=== PATIENT | female | born 1980 | race Two or more races ===

== ENCOUNTER 2023-12-06 17:23 | Inpatient (IN) | payer OTHER ==
[~2023-12-06] VITALS: Ht 149.9 cm; Wt 70.3 kg
[2023-12-06] MEDS ORDERED: CRYSELLE-28 TA1 EACH PO (17:54)
[2023-12-06] MEDS ORDERED: FUSION PLUS CA1 EACH PO (17:55)
[2023-12-06] MEDS ORDERED: GLUMETZA500 MG PO (17:55)
[2023-12-06] MEDS ORDERED: TRAM1TAB98 PO (17:55)
[2023-12-06] MEDS ORDERED: DDAVP0.1 MG NASAL (17:56)
[2023-12-06] MEDS ORDERED: RINGERS SOLUTION,LACTATED 1,000 ML IV SCH (18:15)
[2023-12-06] MEDS ORDERED: DESMOPRESSIN ACETATE 4 MCG/ML AMPUL IV SCH (19:12)
[2023-12-06 19:18] LABS: MEAN CELL VOLUME 70.8 fL (80.00-100.00); MEAN CORPUSCULAR HGB CONC 31.4 g/dl (32.0-36.0); PLATELET COUNT 463 K/uL (150-450); RED BLOOD COUNT 2.76 M/uL (4.00-6.00); RED CELL DISTRIBUTION WIDTH 18.8 % (11.5-14.5)
[2023-12-06 19:20] LABS: HEMATOCRIT 19.5 % (36.0-45.00); HEMOGLOBIN 6.1 g/dL (12.0-15.00); MEAN CORPUSCULAR HEMOGLOBIN 22.1 pg (27.00-32.0)
[2023-12-06 19:33] LABS: PARTIAL THROMBOPLASTIN TIME 22.7 SECONDS (22.0-34.0); PROTHROMBIN TIME 10.9 SECONDS (9.0-11.5)
[2023-12-06 19:37] LABS: ALBUMIN 3.1 gm/dL (3.4-5.0); BILIRUBIN TOTAL 0.32 mg/dL (0.3-1.2); CALCIUM 8.6 mg/dL (8.5-10.1); CREATININE SERUM 0.74 mg/dL (0.55-1.02); GFR 85.65; GLOBULINA 3.6 G/DL (2.4-3.5); POTASSIUM 3.62 mEq/L (3.5-5.1); TOTAL PROTEIN 6.7 gm/dL (6.4-8.2)
[2023-12-07 00:04] VITALS: BP 121/75
[2023-12-07 00:16] VITALS: BP 121/75; O2SAT 100
[2023-12-07] MEDS ORDERED: ACETAMINOPHEN 500 MG GEL..CAP PO ONE (06:30)
[2023-12-07 07:42] VITALS: BP 113/71
[2023-12-07 08:00] VITALS: BP 121/76
[2023-12-07] MEDS ORDERED: FUROsemide 20 MG/2 ML VIAL IV NR (08:00)
[2023-12-07] MEDS ORDERED: MetFORMIN HCL 500 MG TABLET PO SCH (09:00)
[2023-12-07] MEDS ORDERED: Cyanocobalamin/Mecobalamin 1 TAB.SL SL NR (14:06)
[2023-12-07 16:00] VITALS: BP 108/75
[2023-12-07] MEDS ORDERED: SOD FERRIC GLUC COMPLX/SUCROSE 62.5 MG in 0.9 % SODIUM CHLORIDE 50 ML IV SCH (17:00)
[2023-12-07 17:35] LABS: HEMATOCRIT 33.4 % (36.0-45.00); HEMOGLOBIN 10.9 g/dL (12.0-15.00); MEAN CELL VOLUME 79.1 fL (80.00-100.00); MEAN CORPUSCULAR HEMOGLOBIN 25.7 pg (27.00-32.0); MEAN CORPUSCULAR HGB CONC 32.5 g/dl (32.0-36.0); PLATELET COUNT 389 K/uL (150-450); RED BLOOD COUNT 4.23 M/uL (4.00-6.00); RED CELL DISTRIBUTION WIDTH 20.2 % (11.5-14.5)
[2023-12-08 01:36] VITALS: BP 113/70
[2023-12-08 06:33] LABS: CALCIUM 8.6 mg/dL (8.5-10.1); CREATININE SERUM 0.63 mg/dL (0.55-1.02); GFR 103.14; MAGNESIUM 2.2 mg/dL (1.8-2.4); POTASSIUM 3.95 mEq/L (3.5-5.1)
[2023-12-08 06:47] LABS: HEMATOCRIT 31.1 % (36.0-45.00); HEMOGLOBIN 10.4 g/dL (12.0-15.00); MEAN CELL VOLUME 77.1 fL (80.00-100.00); MEAN CORPUSCULAR HEMOGLOBIN 25.8 pg (27.00-32.0); MEAN CORPUSCULAR HGB CONC 33.5 g/dl (32.0-36.0); PLATELET COUNT 360 K/uL (150-450); RED BLOOD COUNT 4.03 M/uL (4.00-6.00); RED CELL DISTRIBUTION WIDTH 20.8 % (11.5-14.5)
[2023-12-08] MEDS ORDERED: CLINDAMYCIN PHOSPHATE 600 MG in 0.9 % SODIUM CHLORIDE 100 ML IV ONE (08:45)
[2023-12-08] MEDS ORDERED: Cyanocobalamin/Mecobalamin 1 TAB.SL SL SCH (09:00)
[2023-12-08] MEDS ORDERED: POVIDONE-IODINE 118 ML BOTT TOP ONE (09:00)
[2023-12-08] MEDS ORDERED: HEMOSTATIC MATRIX WITH THROMBIN KIT TOP ONE (09:15)
[2023-12-08] MEDS ORDERED: ONDANSETRON HCL 2 MG/ML VIAL IV PRN (10:00)
[2023-12-08] MEDS ORDERED: MORPHINE SULFATE 4 MG,MORPHINE SULFATE 2 MG IV PRN (10:00)
[2023-12-08] MEDS ORDERED: SUGAMMADEX SODIUM 200 MG/2 ML VIAL IV ONE (10:00)
[2023-12-08] MEDS ORDERED: MORPHINE SULFATE 4 MG/ML VIAL IV ONE (10:25)
[2023-12-08] MEDS ORDERED: CLINDAMYCIN PHOSPHATE 150 MG/ML (600mg) IV SCH (12:00)
[2023-12-08 12:02] VITALS: BP 123/78
[2023-12-08 13:40] LABS: HEMATOCRIT 32.5 % (36.0-45.00); HEMOGLOBIN 10.6 g/dL (12.0-15.00); MEAN CELL VOLUME 79.3 fL (80.00-100.00); MEAN CORPUSCULAR HEMOGLOBIN 25.8 pg (27.00-32.0); MEAN CORPUSCULAR HGB CONC 32.5 g/dl (32.0-36.0); PLATELET COUNT 343 K/uL (150-450); RED CELL DISTRIBUTION WIDTH 20.4 % (11.5-14.5)
[2023-12-08 15:54] VITALS: O2SAT 100
[2023-12-08 16:27] VITALS: BP 130/82
[2023-12-08 17:19] LABS: HEMATOCRIT 32.5 % (36.0-45.00); HEMOGLOBIN 10.7 g/dL (12.0-15.00); MEAN CELL VOLUME 79.2 fL (80.00-100.00); MEAN CORPUSCULAR HEMOGLOBIN 26.1 pg (27.00-32.0); PLATELET COUNT 340 K/uL (150-450); RED BLOOD COUNT 4.11 M/uL (4.00-6.00); RED CELL DISTRIBUTION WIDTH 20.9 % (11.5-14.5)
[2023-12-08] MEDS ORDERED: MEPERIDINE HCL/PF 50 MG/ML VIAL IV PRN (22:15)
[2023-12-08] MEDS ORDERED: PROMETHAZINE HCL 25 MG/ML AMPUL IV PRN (22:15)
[2023-12-09 01:51] VITALS: BP 123/75
[2023-12-09 07:09] LABS: HEMATOCRIT 32.9 % (36.0-45.00); HEMOGLOBIN 10.9 g/dL (12.0-15.00); MEAN CORPUSCULAR HEMOGLOBIN 25.8 pg (27.00-32.0); MEAN CORPUSCULAR HGB CONC 33.1 g/dl (32.0-36.0); PLATELET COUNT 352 K/uL (150-450); RED BLOOD COUNT 4.21 M/uL (4.00-6.00); RED CELL DISTRIBUTION WIDTH 21.1 % (11.5-14.5)
[2023-12-09] MEDS ORDERED: GABAPENTIN 300 MG CAPSULE PO PRN (07:15)
[2023-12-09] MEDS ORDERED: OxyCODONE HCL/APAP UD (PERCOCET) PO PRN (07:15)
[2023-12-09 08:22] VITALS: BP 127/84
[2023-12-09] MEDS ORDERED: DESMOPRESSIN ACETATE 4 MCG/ML AMPUL IV SCH (09:00)
[2023-12-09] MEDS ORDERED: INSULIN LISPRO 1,000 UNIT/10 ML UNITS SUBCUTANEO PRN (10:30)
[2023-12-09] MEDS ORDERED: DEXTROSE 50 % IN WATER 0.5 G/ML DISP.SYRIN IV PRN (10:30)
[2023-12-09] MEDS ORDERED: ACETAMINOPHEN 500 MG GEL..CAP PO PRN (11:15)
[2023-12-09 16:10] VITALS: BP 128/81
[2023-12-10 00:12] VITALS: BP 129/82
[2023-12-10 06:51] LABS: HEMOGLOBIN 11.1 g/dL (12.0-15.00); MEAN CELL VOLUME 79.6 fL (80.00-100.00); MEAN CORPUSCULAR HGB CONC 32.7 g/dl (32.0-36.0); PLATELET COUNT 354 K/uL (150-450); RED BLOOD COUNT 4.27 M/uL (4.00-6.00); RED CELL DISTRIBUTION WIDTH 21.8 % (11.5-14.5)
[2023-12-10] MEDS ORDERED: GABAPENTIN300 MG PO (07:05)
[2023-12-10] MEDS ORDERED: OXYC1TAB9 PO (07:05)
[2023-12-10] MEDS ORDERED: ZOFRAN8 MG PO (07:07)
[2023-12-10] MEDS ORDERED: LEVSIN/SL0.125 MG SL (07:07)
[2023-12-10 08:28] VITALS: BP 124/85
== END 2023-12-10 08:46 | disposition home or self-care (01) | DRG 742 ==
LOC: ER 17:25 → OB/GYN 20:43 → SEC-K 20:43 → OB/GYN 21:42
PROVIDERS: General Practice; Internal Medicine Geriatric Medicine; ADMIT Obstetrics & Gynecology Gynecology; ATTEND Obstetrics & Gynecology Gynecology
PROC: 30233N1 Transfusion of Nonautologous Red Blood Cells into Peripheral Vein, Percutaneous Approach (ICD-10-PCS; 2023-12-06)
PROC: 0UB70ZZ Excision of Bilateral Fallopian Tubes, Open Approach (ICD-10-PCS; 2023-12-08)
PROC: 0UT90ZZ Resection of Uterus, Open Approach (ICD-10-PCS; principal; 2023-12-08 10:30)
DX: N92.1 Excessive and frequent menstruation with irregular cycle (principal); D68.00 Von Willebrand disease, unspecified; N72 Inflammatory disease of cervix uteri; D50.0 Iron deficiency anemia secondary to blood loss (chronic); Z20.822 Contact with and (suspected) exposure to COVID-19

== ENCOUNTER 2023-12-11 18:41 | Inpatient (IN) | payer OTHER ==
[~2023-12-11] VITALS: Ht 121.9 cm; Wt 70.3 kg
[~2023-12-11 18:41] MED LIST: CRYSELLE-28 TA1 EACH PO; DDAVP0.1 MG NASAL; FUSION PLUS CA1 EACH PO; GABAPENTIN300 MG PO; GLUMETZA500 MG PO; LEVSIN/SL0.125 MG SL; OXYC1TAB9 PO; TRAM1TAB98 PO; ZOFRAN8 MG PO
--- NOTE | 2023-12-11 19:02 | NUR ---
SE RECIBE PACIENTE ALERTA Y ORIENTADA X3 LA CUAL REFIERE VENIR A CAUSA DE DOLOR Y MAREOS PRESENTADOS DESDE EL TUTU DE [place]. PACIENTE REFIERE QUE FUE FUE OPERADA MIERCOLES PASADO POR DR. KATHARINA LEOS DE HISTERECTOMIA. AL MOMENTO PTE REFIERE QUE LLEVA MAS DE 15 VOMITOS. SE MIDEN S/V Y SE UBICA.
[2023-12-11] MEDS ORDERED: HYOSCYAMINE SULFATE 0.125 MG TAB.SUBL SL ONE (19:30)
[2023-12-11] MEDS ORDERED: PANTOPRAZOLE SODIUM 40 MG/VIAL VIAL IV PUSH ONE (19:30)
[2023-12-11] MEDS ORDERED: 0.9 % SODIUM CHLORIDE 1,000 ML IV ONE (19:30)
[2023-12-11] MEDS ORDERED: ONDANSETRON HCL 2 MG/ML VIAL IV ONE (19:30)
--- NOTE | 2023-12-11 19:36 | NUR ---
PTE EVALUADO POR MD [facility]EN[place] MED A PTE SE EUDC A APTE SOBRE EL SMIMO Y PTE REFIER EENTGDER. SE LLEVA ACABO ORDENES BAJO MEDIDAS ACEPTICAS. PT PEND A RESUTLADOS DE LABS Y CT.
[2023-12-11 19:37] LABS: HEMATOCRIT 38.3 % (36.0-45.00); HEMOGLOBIN 12.7 g/dL (12.0-15.00); MEAN CELL VOLUME 78.9 fL (80.00-100.00); MEAN CORPUSCULAR HEMOGLOBIN 26.2 pg (27.00-32.0); MEAN CORPUSCULAR HGB CONC 33.2 g/dl (32.0-36.0); PLATELET COUNT 399 K/uL (150-450); RED BLOOD COUNT 4.86 M/uL (4.00-6.00); RED CELL DISTRIBUTION WIDTH 22.2 % (11.5-14.5)
[2023-12-11 20:17] LABS: ALBUMIN 2.9 gm/dL (3.4-5.0); BILIRUBIN TOTAL 1.4 mg/dL (0.3-1.2); CALCIUM 9.1 mg/dL (8.5-10.1); CREATININE SERUM 0.87 mg/dL (0.55-1.02); GFR 71.06; GLOBULINA 4.8 G/DL (2.4-3.5); POTASSIUM 3.31 mEq/L (3.5-5.1); TOTAL PROTEIN 7.7 gm/dL (6.4-8.2)
--- NOTE | 2023-12-11 22:28 | NUR ---
SE INSERTA TUBO NASOGASTRICO EN JULISSA IZQUERDO USANDO MEDIDAS ASEPTICAS Y ESTERILES.PTE TOLERANDO AL MOMENTO CON UN EGRESO DE 400ML.
[2023-12-11] MEDS ORDERED: METOCLOPRAMIDE HCL 5 MG/ML VIAL IM ONE (23:15)
[2023-12-11] MEDS ORDERED: CIPROFLOXACIN IN 5 % DEXTROSE 200 ML IV SCH (23:39)
[2023-12-11] MEDS ORDERED: ONDANSETRON HCL 4 MG in 0.9 % SODIUM CHLORIDE 50 ML IV PRN (23:45)
[2023-12-11] MEDS ORDERED: METOCLOPRAMIDE HCL 5 MG/ML VIAL IM PRN (23:45)
[2023-12-11] MEDS ORDERED: POTASSIUM CHLORIDE/NACL 0.9% 1,000 ML IV ONE (23:45)
[2023-12-11] MEDS ORDERED: 0.9 % SODIUM CHLORIDE 1,000 ML IV SCH (23:45)
[2023-12-12 00:52] LABS: PHOSPHOROUS 2.8 mg/dL (2.5-4.9)
[2023-12-12] MEDS ORDERED: METRONIDAZOLE/SODIUM CHLORIDE 100 ML IV SCH (01:00)
[2023-12-12 01:05] LABS: INR 1.28; PARTIAL THROMBOPLASTIN TIME 28.6 SECONDS (22.0-34.0); PROTHROMBIN TIME 13.7 SECONDS (9.0-11.5)
[2023-12-12 01:19] VITALS: BP 120/81; O2SAT 96
[2023-12-12 03:32] VITALS: BP 122/78
[2023-12-12] MEDS ORDERED: FAMOTIDINE/PF 20 MG in 0.9 % SODIUM CHLORIDE 8 ML IV PUSH SCH (05:00)
[2023-12-12] MEDS ORDERED: METOCLOPRAMIDE HCL 5 MG/ML VIAL IM SCH (06:01)
[2023-12-12] MEDS ORDERED: ONDANSETRON HCL 2 MG/ML VIAL IV PRN (06:15)
[2023-12-12] MEDS ORDERED: DESMOPRESSIN ACETATE 4 MCG/ML AMPUL IV SCH (09:00)
[2023-12-12 09:20] VITALS: BP 140/95
[2023-12-12 13:15] LABS: URINE APPEARANCE Cloudy; URINE BILIRRUBIN Small (NEGATIVE); URINE BLOOD Small; URINE COLOR Dark Yellow; URINE LEUKOCYTE Small; URINE NITRATE Positive
[2023-12-12 13:18] LABS: URINE BACTERIA 866.8 uL (0.0-1933); URINE EPITHELIAL CELLS 65.8 uL (0.0-38.8); URINE RBC 42.7 uL (0.0-20.8); URINE WBC 29.5 uL (0.0-23.2)
[2023-12-12 13:36] LABS: URINE CAST 0.76 uL (0.0-1.40); URINE GLUCOSE 100 MG/DL (NEGATIVE); URINE KETONE 80 (NEGATIVE); URINE MUCUS SCANT; URINE PROTEIN 100 (NEGATIVE)
[2023-12-12 15:32] VITALS: BP 142/90
[2023-12-12] MEDS ORDERED: POTASSIUM CHLORIDE IN WATER 100 ML IV ONE (16:15)
[2023-12-12] MEDS ORDERED: SOD FERRIC GLUC COMPLX/SUCROSE 62.5 MG in 0.9 % SODIUM CHLORIDE 50 ML IV SCH (16:15)
[2023-12-12] MEDS ORDERED: DEXTROSE 50 % IN WATER 0.5 G/ML DISP.SYRIN IV PRN (16:30)
[2023-12-12] MEDS ORDERED: INSULIN LISPRO 1,000 UNIT/10 ML UNITS SUBCUTANEO PRN (16:30)
[2023-12-12] MEDS ORDERED: SOD FERRIC GLUC COMPLX/SUCROSE 62.5 MG/5 ML AMPUL IV STA (16:51)
[2023-12-12] MEDS ORDERED: POTASSIUM CHLORIDE IN WATER 40 MEQ/100 ML PIGGYBAG IV ONE (17:00)
[2023-12-12] MEDS ORDERED: CIPROFLOXACIN IN 5 % DEXTROSE 200 ML IV SCH (17:00)
[2023-12-13 01:00] VITALS: BP 130/80
[2023-12-13 06:55] LABS: HEMATOCRIT 31.9 % (36.0-45.00); HEMOGLOBIN 10.3 g/dL (12.0-15.00); MEAN CELL VOLUME 80.5 fL (80.00-100.00); MEAN CORPUSCULAR HGB CONC 32.3 g/dl (32.0-36.0); PLATELET COUNT 299 K/uL (150-450); RED BLOOD COUNT 3.97 M/uL (4.00-6.00)
[2023-12-13 07:13] LABS: ALBUMIN 2.5 gm/dL (3.4-5.0); BILIRUBIN TOTAL 0.62 mg/dL (0.3-1.2); CALCIUM 8.5 mg/dL (8.5-10.1); CREATININE SERUM 0.49 mg/dL (0.55-1.02); GFR 137.84; GLOBULINA 3.4 G/DL (2.4-3.5); POTASSIUM 3.72 mEq/L (3.5-5.1); TOTAL PROTEIN 5.9 gm/dL (6.4-8.2)
[2023-12-13] MEDS ORDERED: SOD FERRIC GLUC COMPLX/SUCROSE 62.5 MG/5 ML AMPUL IV SCH (09:00)
[2023-12-13] MEDS ORDERED: MetFORMIN HCL 500 MG TABLET PO SCH (09:00)
[2023-12-13] MEDS ORDERED: DESMOPRESSIN ACETATE 4 MCG/ML AMPUL IV SCH (09:00)
[2023-12-13 10:06] VITALS: BP 123/83
[2023-12-13 16:00] VITALS: BP 126/82
[2023-12-13 18:35] LABS: HEMATOCRIT 30.6 % (36.0-45.00); MEAN CELL VOLUME 78.9 fL (80.00-100.00); MEAN CORPUSCULAR HEMOGLOBIN 25.7 pg (27.00-32.0); MEAN CORPUSCULAR HGB CONC 32.5 g/dl (32.0-36.0); PLATELET COUNT 298 K/uL (150-450); RED BLOOD COUNT 3.88 M/uL (4.00-6.00); RED CELL DISTRIBUTION WIDTH 21.9 % (11.5-14.5)
[2023-12-14] VITALS: BP 124/77
[2023-12-14 07:49] VITALS: BP 127/76
== END 2023-12-14 09:28 | disposition home or self-care (01) | DRG 389 ==
LOC: ER 18:43 → OB/GYN 23:42
PROVIDERS: General Practice; Internal Medicine; ADMIT Obstetrics & Gynecology Gynecology; ATTEND Obstetrics & Gynecology Gynecology
PROC: BW21ZZZ Computerized Tomography (CT Scan) of Abdomen and Pelvis (ICD-10-PCS; principal; 2023-12-11)
PROC: 0D9670Z Drainage of Stomach with Drainage Device, Via Natural or Artificial Opening (ICD-10-PCS; 2023-12-11)
DX: K56.0 Paralytic ileus (principal); D68.00 Von Willebrand disease, unspecified; E11.9 Type 2 diabetes mellitus without complications; D50.0 Iron deficiency anemia secondary to blood loss (chronic); R11.2 Nausea with vomiting, unspecified; Z20.822 Contact with and (suspected) exposure to COVID-19